=== PATIENT | male | born 1995 | race Caucasian/White ===

== ENCOUNTER 2020-01-29 13:12 | Emergency (ER) | payer OTHER, SELFPAY ==
--- NOTE | 2020-01-29 13:30 | XR_ITS ---
PROCEDURE: XR RIBS RT MIN 3V W CXR1V CLINICAL INDICATION: injury Anterior right-sided mid rib pain following injury COMPARISON: No exams were available for comparison FINDINGS: Multiple views of the right ribs show no obvious fracture. No lytic or blastic change. Consider follow-up in 7-[address] with 3D reformats if pain persists Frontal view of the chest shows no acute finding IMPRESSION: No acute findings. Dictated by: Ronaldo Rodriguez MD 01/29/2020 14:51 Electronically signed by Ronaldo Rodriguez MD in [place] 01/29/2020 14:51
[2020-01-29 13:33] VITALS: BP 132/78; PULSE 85; RESP 20; TEMP 36.8; O2SAT 98; BMI 22.2
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
[2020-01-29 14:22] LABS: Basophils # 0.1 K/mm3 (0-0.2); Basophils % 1.2 % (0.1-2.0); Eosinophils # 0.1 K/mm3 (0.0-0.4); Eosinophils % 1.7 % (0.1-12.0); Hematocrit 48.1 % (42.0-52.0); Lymphocytes # 1.6 K/mm3 (0.7-4.5); Lymphocytes % 28.1 % (10-50); Mean Corpuscular HGB Conc 33.3 g/dL (31.8-35.4); Mean Corpuscular Hemoglobin 27.8 pg (27.0-31.2); Mean Corpuscular Volume 83.6 fl (80-94); Monocytes # 0.3 K/mm3 (0.1-1.0); Monocytes % 5.8 % (1.7-9.3); Neutrophils # 3.6 K/mm3 (1.8-7.8); Neutrophils % 63.3 % (37.0-80.0); Platelet Count 237 K/mm3 (142-424); Red Blood Count 5.75 M/mm3 (4.60-6.20); Red Cell Distribution Width 12.6 % (11.5-17.5); White Blood Count 5.6 K/mm3 (4.8-10.8)
[2020-01-29 14:26] LABS: Chloride 100 mmol/L (98-107); Potassium 4.6 mmoL/L (3.5-5.1); Sodium 137 mmol/L (136-145)
[2020-01-29 14:28] LABS: Alkaline Phosphatase 48 U/L (38-126); Anion Gap 11.6 mEq/L (5-15); Bilirubin,Total 1.9 mg/dl (0.2-1.3); Blood Urea Nitrogen 14 mg/dl (9-20); Carbon Dioxide 30 mmol/L (22.0-30.0); Creatinine Clearance Estimated 126 mL/min (50-200); Estimated Glomerular Filt Rate 104 ml/min (>60); GFR (African American) 125 ML/MIN (>60)
[2020-01-29 14:29] LABS: Albumin Level 4.7 g/dl (3.5-5.0); Albumin/Globulin Ratio 1.6 (1.1-1.8); Aspartate Amino Transferase 44 U/L (17-59); Calcium 9.1 mg/dl (8.4-10.2); Glucose 105 mg/dl (74-100); Total Protein,Serum 7.7 g/dl (6.3-8.2)
[2020-01-29 14:30] LABS: Alanine Aminotransferase 30 U/L (12-78)
[2020-01-29 15:08] VITALS: BP 132/78; PULSE 85; RESP 20; TEMP 36.8; O2SAT 98
== END 2020-01-29 15:14 | disposition home or self-care (01) ==
PROVIDERS: Emergency Provider Nurse Practitioner Family
DX: S20.211A Contusion of right front wall of thorax, initial encounter (principal); W23.0XXA Caught, crushed, jammed, or pinched between moving objects, initial encounter; Y92.71 Barn as the place of occurrence of the external cause
CPT/HCPCS: 71101; 80053; 85025; 96372; 99202

== ENCOUNTER 2020-10-28 10:59 | Emergency (ER) | payer BC, SELFPAY ==
[2020-10-28] VITALS (8 sets, daily range): BP systolic 127–163; BP diastolic 79–85; PULSE 96–113; RESP 18–20; TEMP 37.2–37.6; O2SAT 99–100; BMI 22.7
--- NOTE | 2020-10-28 11:01 | HMH.EDABDPAI ---
ED Disposition Clinical Impression: Gastroenteritis, Foreign bodies Disposition: Home, Self-Care Condition on Discharge: Good Instructions: DI for Acute Abdominal Pain Referrals: Nicolás Gregory MD [Staff Physician] - 10/30/20 (call for time of appt) PCPSusan [Primary Care Provider] - 3 days Time of Disposition: 14:03 - Critical Care Critical Care Time: No Attestation: On , the high probability of a clinically significant, sudden or life threatening deterioration of the following system(s) required my full and direct attention, intervention and personal management. The time I documented below is in addition to time spent performing reported procedures but includes the following listed in this critical care notation. Medical Decision Making - Sergio Inquiry Pt receiving controlled substance: No Vital Signs: 10/28/20 11:05 10/28/20 11:29 10/28/20 11:47 Temperature 99.7 F H Temperature Source Oral Pulse Rate [Left Radial] 113 H 109 H 107 H Respiratory Rate 20 19 20 Blood Pressure [Right Arm] 163/83 H 137/79 137/83 Blood Pressure Mean [Right Arm] 109 98 101 Blood Pressure Source [Right Arm] Automatic Cuff Automatic Cuff Manual Cuff/ Doppler Blood Pressure Position [Right Arm] Sitting Sitting Sitting 02 Sat by Pulse Oximetry 99 100 100 Oxygen Delivery Method Room Air Room Air Room Air 10/28/20 12:00 10/28/20 12:30 10/28/20 13:00 Temperature Temperature Source Pulse Rate [Left Radial] 104 H 101 H 98 H Respiratory Rate 18 20 19 Blood Pressure [Right Arm] 133/79 131/85 127/80 Blood Pressure Mean [Right Arm] 97 100 95 Blood Pressure Source [Right Arm] Blood Pressure Position [Right Arm] 02 Sat by Pulse Oximetry 99 100 100 Oxygen Delivery Method Room Air Room Air 10/28/20 13:30 Temperature Temperature Source Pulse Rate [Left Radial] 103 H Respiratory Rate 18 Blood Pressure [Right Arm] 130/79 Blood Pressure Mean [Right Arm] 96 Blood Pressure Source [Right Arm] Blood Pressure Position [Right Arm] 02 Sat by Pulse Oximetry 99 Oxygen Delivery Method Room Air - Lab Data Lab results reviewed: Yes: I reviewed the patient's lab results. Lab Results 10/28/20 11:07: Urine Color Yellow, Urine Appearance Clear, Urine pH 7.5, Ur Specific [place] 1.015, Urine Protein Negative, Urine Glucose (UA) Negative, Urine Ketones Negative, Urine Blood Negative, Urine Nitrate Negative, Urine Bilirubin Negative, Urine Urobilinogen 0.2, Ur Leukocyte Esterase Negative, Urine WBC 3-5, Ur Squamous Epith Cells 3-5 10/28/20 11:11: WBC 11.4 H, RBC 5.64, Hgb 16.6, Hct 48.2, MCV 85.5, MCH 29.5, MCHC 34.5, RDW 13.0, Plt Count 203, MPV 8.2, Neut % (Auto) 88.1 H, Lymph % (Auto) 7.1 L, [place] % (Auto) 3.6, Eos % (Auto) 0.8, Baso % (Auto) 0.4, Neut # (Auto) 10.0 H, Lymph # (Auto) 0.8, [place] # (Auto) 0.4, Eos # (Auto) 0.1, Baso # (Auto) 0.0, Total Counted 100, Neutrophils % (Manual) 88 H, Lymphocytes % (Manual) 8 L, Monocytes % (Manual) 3, Eosinophils % (Manual) 1, Platelet Estimate Normal, RBC Morphology Normal 10/28/20 11:11: Sodium 139, Potassium 4.4, Chloride 101, Carbon Dioxide 34 H, Anion Gap 8.4, BUN 10, Creatinine 1.00, Estimated Creat Clear 118, Estimated GFR 91, Est GFR ( Amer) 110, Glucose 130 H, Calcium 9.7, Total Bilirubin 1.8 H, AST 40, ALT 39, Alkaline Phosphatase 63, Total Protein 8.2, Albumin 4.8, Globulin 3.4 H, Albumin/Globulin Ratio 1.4, Lipase 48 Result diagrams: 10/28/20 11:11 10/28/20 11:11 Orders (Tests/Meds): ED MEDICATIONS Discontinued Medications Generic Name Dose Route Start Last Admin Trade Name Freq PRN Reason Stop Dose Admin Iopamidol 75 ml 10/28/20 11:48 10/28/20 11:48 Iopamidol-370 (76%);100ml Bottle IV 10/28/20 11:49 75 ml ONCE ONE Administration Morphine Sulfate 4 mg 10/28/20 11:56 10/28/20 12:14 Morphine 4mg/Ml Syringe IV 10/28/20 11:57 4 mg ONCE ONE Administration Ondansetron HCl 4 mg 10/28/20 11:55 02/15/21 12:14 Ondansetron 4mg/2ml Vial IV
--- NOTE | 2020-10-28 11:07 | CT_ITS ---
PROCEDURE: CT ABDOMEN PELVIS W CON CLINICAL INDICATION: RLQ pain X3 weeks, has recently projected across the abdomen, vomiting this morning, pain increased last night. COMPARISON: US RUQ US RUQ-(ABD LTD)1ORGAN/QUAD/FU from 03/10/2016 TECHNIQUE: IV Contrast: 75ML Isovue 370 Oral Contrast None Axial images obtained with sagittal and coronal reformats. All CT scans at the facility use one or more dose reduction, viz: automated exposure control, ma/kV adjustment per patient size (including targeted exams where dose is matched to indication, i.e. head), or iterative reconstruction technique. FINDINGS: LOWER THORAX: No acute finding ABDOMEN & PELVIS: The liver, spleen, pancreas, adrenal glands, and kidneys show no acute finding. No intestinal obstruction or free air. There are scattered diverticuli in the sigmoid colon, no CT evidence of acute diverticulitis, correlate clinically. There are surgical clips adjacent to the cecum which suggests prior appendectomy. The appendix is not visualized as an independent structure however there are no secondary signs to suggest acute appendicitis. There are multiple fluid-filled loops of some nondilated small bowel. These areas demonstrate borderline wall thickening which could indicate gastroenteritis. No pelvic mass, abnormal fluid collection, or focal inflammatory change of the pelvis. No acute bony anomalies. IMPRESSION: 1. Diverticulosis without CT evidence of diverticulitis, correlate clinically. 2. Possible mild appearing gastroenteritis. Dictated by: Chelsea Buck 10/28/2020 11:50 Chelsea Buck in [place] 10/28/2020 11:50
[2020-10-28 11:32] LABS: Basophils % 0.4 % (0.1-2.0); Eosinophils # 0.1 K/mm3 (0.0-0.4); Eosinophils % 0.8 % (0.1-12.0); Hematocrit 48.2 % (42.0-52.0); Hemoglobin 16.6 g/dL (14.1-18.0); Lymphocytes # 0.8 K/mm3 (0.7-4.5); Lymphocytes % 7.1 % (10-50); Mean Corpuscular HGB Conc 34.5 g/dL (31.8-35.4); Mean Corpuscular Hemoglobin 29.5 pg (27.0-31.2); Mean Corpuscular Volume 85.5 fl (80-94); Mean Platelet Volume 8.2 fl (7.4-10.4); Monocytes # 0.4 K/mm3 (0.1-1.0); Monocytes % 3.6 % (1.7-9.3); Neutrophils % 88.1 % (37.0-80.0); Platelet Count 203 K/mm3 (142-424); Red Blood Count 5.64 M/mm3 (4.60-6.20); White Blood Count 11.4 K/mm3 (4.8-10.8)
[2020-10-28 11:40] LABS: MANUAL DIFFERENTIAL MANUAL DIFFERENTIAL (MANUAL DIFF)
[2020-10-28 11:42] LABS: Chloride 101 mmol/L (98-107); Potassium 4.4 mmoL/L (3.5-5.1); Sodium 139 mmol/L (136-145)
[2020-10-28 11:44] LABS: Alanine Aminotransferase 39 U/L (12-78); Alkaline Phosphatase 63 U/L (38-126); Aspartate Amino Transferase 40 U/L (17-59); Bilirubin,Total 1.8 mg/dl (0.2-1.3); Blood Urea Nitrogen 10 mg/dl (9-20); Creatinine Clearance Estimated 118 mL/min (50-200); Estimated Glomerular Filt Rate 91 ml/min (>60); GFR (African American) 110 ML/MIN (>60)
[2020-10-28 11:45] LABS: Albumin Level 4.8 g/dl (3.5-5.0); Albumin/Globulin Ratio 1.4 (1.1-1.8); Anion Gap 8.4 mEq/L (5-15); Calcium 9.7 mg/dl (8.4-10.2); Carbon Dioxide 34 mmol/L (22.0-30.0); Globulin 3.4 g/dL (1.3-3.2); Glucose 130 mg/dl (74-100); Lipase 48 U/L (23-300); Total Protein,Serum 8.2 g/dl (6.3-8.2)
[2020-10-28 12:01] LABS: Eosinophils % 1 % (0-3); Lymphocytes % 8 % (10-50); Monocytes % 3 % (2-9); Neutrophils % 88 % (42-76); Platelet Estimate Normal; RBC Morphology Normal; Total Cells Counted 100
[2020-10-28 12:52] LABS: Microscopic, Urine URINE MICROSCOPIC (MICROSCOPIC)
[2020-10-28 12:59] LABS: Appearance,Urine CLEAR (Clear); Bilirubin,Urine Negative (Negative); Blood, Urine Negative (Negative); Color,Urine YELLOW (Yellow); Glucose,Urine (UA) Negative (Negative); Ketones,Urine Negative (Negative); Leukocyte Esterase,Urine Negative (Negative); Nitrate,Urine Negative (Negative); PH,Urine 7.5 (5.0-8.5); Protein,Urine Negative (Negative); Specific Gravity, Urine 1.015 (1.005-1.030); Urobilinogen,Urine 0.2 EU/dl (0.2)
== END 2020-10-28 14:12 | disposition home or self-care (01) ==
PROVIDERS: Emergency Provider Family Medicine
DX: K52.9 Noninfective gastroenteritis and colitis, unspecified (principal); Z87.442 Personal history of urinary calculi
CPT/HCPCS: 74177; 80053; 81001; 83690; 85007; 85025; 96374; 96375; 99284; J2405; Q9967

== ENCOUNTER → 2020-10-30 08:40 | Outpatient (CLI) | payer BC, SELFPAY ==
[2020-10-30 08:58] LABS: Basophils % 0.5 % (0.1-2.0); Eosinophils # 0.1 K/mm3 (0.0-0.4); Eosinophils % 1.8 % (0.1-12.0); Hematocrit 47.8 % (42.0-52.0); Hemoglobin 15.9 g/dL (14.1-18.0); Lymphocytes # 1.3 K/mm3 (0.7-4.5); Lymphocytes % 23.4 % (10-50); Mean Corpuscular HGB Conc 33.3 g/dL (31.8-35.4); Mean Corpuscular Hemoglobin 29.5 pg (27.0-31.2); Mean Corpuscular Volume 88.6 fl (80-94); Mean Platelet Volume 7.9 fl (7.4-10.4); Monocytes # 0.3 K/mm3 (0.1-1.0); Monocytes % 5.1 % (1.7-9.3); Neutrophils # 3.9 K/mm3 (1.8-7.8); Neutrophils % 69.2 % (37.0-80.0); Platelet Count 199 K/mm3 (142-424); Red Blood Count 5.39 M/mm3 (4.60-6.20); Red Cell Distribution Width 12.7 % (11.5-17.5); White Blood Count 5.7 K/mm3 (4.8-10.8)
--- NOTE | 2020-10-30 09:27 | XR_ITS ---
PROCEDURE: XR ACUTE ABDOMEN SERIES CLINICAL INDICATION: constipation Possible foreign body in or adjacent to the cecum on recent CT. COMPARISON: Abdomen pelvis CT 10/28/2020 FINDINGS: Lungs are well expanded and clear with no infiltrate pulmonary edema or pleural effusion. Cardiac and mediastinal contours are within normal limits. There is no free air below the diaphragm. There is a moderate amount of stool throughout the colon. Bowel gas pattern is unremarkable. There are 2 rounded radiopaque densities in the descending colon. Radiopaque objects are no longer present in the cecum. These are consistent in appearance with the radiopaque foreign bodies previously located in the cecum on recent CT and with bowel transit are now located in the descending colon. There is mild, less than 15 degree, right convex curvature of the upper thoracic spine. Visualized skeletal structures are otherwise unremarkable. IMPRESSION: Interval transit of radiopaque small objects from the cecum on recent CT to the descending colon on current x-ray. Dictated by: Chelsea Buck 10/30/2020 10:10 Chelsea Buck in [place] 10/30/2020 10:10
== END ==
PROVIDERS: Visit Provider Surgery
DX: K52.9 Noninfective gastroenteritis and colitis, unspecified (principal); K59.00 Constipation, unspecified
CPT/HCPCS: 36415; 74021; 85025

== ENCOUNTER → 2020-11-04 09:13 | Outpatient (POV) | payer BC, SELFPAY | PROVIDERS: Visit Provider Nurse Practitioner Family | DX: Z00.00 Encounter for general adult medical examination without abnormal findings (principal) ==

== ENCOUNTER → 2020-11-04 09:36 | Outpatient (CLI) | payer BC, SELFPAY ==
[2020-11-05 16:23] LABS: Endomysial IgA Antibody Negative (Negative); Tissue Transglutaminase IgA Ab <2 U/mL (0-3); Tissue Transglutaminase IgG Ab <2 U/mL (0-5)
[2020-11-06 02:00] LABS: Deamidated Gliadin Abs, IgA 5 units (0-19); Deamidated Gliadin Abs, IgG 2 units (0-19)
[2020-11-06 14:32] LABS: Reticulin IgA Antibody Negative titer (Neg:<1:2.5)
[2020-11-10 05:18] LABS: Miscellaneous Test SEE LABCORP REPORT
== END ==
PROVIDERS: Visit Provider Nurse Practitioner Family
DX: R10.84 Generalized abdominal pain (principal); R14.0 Abdominal distension (gaseous); R19.8 Other specified symptoms and signs involving the digestive system and abdomen
CPT/HCPCS: 36415; 83516; 86255; 86256

== ENCOUNTER → 2020-12-19 09:13 | Outpatient (CLI) | payer BC, SELFPAY ==
[2020-12-19 10:30] LABS: Coronavirus 19 IgG Antibody Positive (Negative); Coronavirus 19 IgM Antibody Negative (Negative)
== END ==
PROVIDERS: Visit Provider Internal Medicine Gastroenterology
DX: Z01.812 Encounter for preprocedural laboratory examination (principal); Z20.822 Contact with and (suspected) exposure to COVID-19; Z12.11 Encounter for screening for malignant neoplasm of colon
CPT/HCPCS: 36415; 86328

== ENCOUNTER 2020-12-20 10:29 | Day surgery (SDC) | payer BC, SELFPAY ==
[2020-12-10 10:12] VITALS: BMI 25.0
[2020-12-10 10:13] VITALS: BMI 23.2
[2020-12-20] VITALS (8 sets, daily range): BP systolic 90–132; BP diastolic 51–87; PULSE 52–83; RESP 16–18; TEMP 36.2–36.9; O2SAT 96–100
--- NOTE | 2020-12-20 11:57 | P.PN_ITS ---
[facility] Anesthesia Record Part I Intake, IV Amount: 900 Estimated blood loss (mL): 0 Urine output (mL): 0 Blood Pressure: 93/53 SaO2: 96 Pulse Rate: 76 Respiratory Rate: 16 Temperature: 97.1 F Patient is:: Drowsy Stable to PACU at:: 11:54
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
== END 2020-12-20 12:59 | disposition home or self-care (01) ==
LOC: OUTP 10:30
PROVIDERS: Visit Provider Internal Medicine Gastroenterology
PROC: 0DJD8ZZ Inspection of Lower Intestinal Tract, Via Natural or Artificial Opening Endoscopic (ICD-10-PCS; CPT 45378; principal; 2020-12-20 11:30)
DX: K63.5 Polyp of colon (principal); K64.0 First degree hemorrhoids; Z80.9 Family history of malignant neoplasm, unspecified; Z82.49 Family history of ischemic heart disease and other diseases of the circulatory system; Z84.89 Family history of other specified conditions
CPT/HCPCS: 45385

== ENCOUNTER 2024-08-11 12:51 | Outpatient (CLI) | payer BC, SELFPAY ==
--- NOTE | 2024-08-11 13:06 | MR_ITS ---
FINAL REPORT TECHNIQUE: Multiplanar and multisequence imaging of the lumbar spine was obtained without contrast. CLINICAL HISTORY: acute onset low back pain right leg pain and lower back pain FINDINGS: There is normal alignment of the lumbar vertebral bodies. Vertebral body height is preserved. The spinal cord ends at the level of L1. There is normal signal intensity within the substance of the distal spinal cord. No acute bone marrow edema or pathologic marrow replacement. No acute paraspinal abnormality is identified. L1-2: There is no focal disc herniation, central canal stenosis or neuroforaminal narrowing. L2-3: There is no focal disc herniation, central canal stenosis or neuroforaminal narrowing. L3-4: There is no focal disc herniation, central canal stenosis or neuroforaminal narrowing. L4-5: There is no focal disc herniation, central canal stenosis or neuroforaminal narrowing. L5-S1: There is no focal disc herniation, central canal stenosis or neuroforaminal narrowing. IMPRESSION: There is no focal disc herniation, central canal stenosis or neuroforaminal narrowing. Reviewed, Interpreted and Dictated by Lorna Gaffney MD Transcribed by Margo Arauz Authenticated and [facility]
== END 2024-08-11 23:59 | disposition home or self-care (01) ==
LOC: RAD 12:52
PROVIDERS: PCP Nurse Practitioner; Visit Provider Nurse Practitioner
DX: M54.50 Low back pain, unspecified (principal)
CPT/HCPCS: 72148